=== PATIENT | female | born 1965 | race Caucasian/White ===

== ENCOUNTER 2019-04-03 19:37 | Emergency (ER) | payer OTHER, MEDICARE ==
[2019-04-03 19:45] VITALS: BP 133/81; PULSE 72; TEMP 97.8; BMI 34.9
[2019-04-03] MEDS ORDERED: ACETAMINOPHEN 325 MG TABLET (FP) PO ONE (19:47)
[2019-04-03] MEDS ORDERED: ACETAMINOPHEN 325 MG TABLET (FP) ONE (19:49)
--- NOTE | 2019-04-03 20:11 | PDOC ---
Documentation entered by Gideon Galvez SCRIBE, acting as scribe for Kinjal Kirkland MD. Kinjal Kirkland MD: This documentation has been prepared by the Leonor bautista Xhesika, SCRIBE, under my direction and personally reviewed by me in its entirety. I confirm that the documentation accurately reflects all work, treatment, procedures, and medical decision making performed by me. History of Present Illness - General Chief Complaint: Injury Stated Complaint: NOSE PAIN History Source: Patient Exam Limitations: No Limitations - History of Present Illness Initial Comments: 04/03/19 19:56 The patient is a 53 year old female with a significant PMH of HTN, fibromuscular dysplasia, CAD with stents, palpitations, and tucasaga who presents to the emergency department with nasal bridge pain and bruising 1hr prior to her arrival. The patient states she tripped and fell face forward in an elevator and sustained an abrasion to her forehead. patient notes she previously sustained a broken nose and had to get a rhinoplasty, which prompted her arrival to the ED. The patient denies LOC, nausea, vomiting. Patient denies epistaxis. The patient denies chest pain, shortness of breath, headache and dizziness. Denies fever, chills, cough, diarrhea and constipation. Denies dysuria, frequency, urgency and hematuria. Allergies: NKDA Past surgical history: lumbar fusion; hip osteotomy; bunion surgery; four left knee surgeries Social history: Glass of wine daily Past History - Past Medical History Allergies/Adverse Reactions: Allergies Allergy/AdvReac Type Severity Reaction Status Date / Time mold Allergy Mild Verified 11/04/17 12:04 shellfish derived Allergy Mild Verified 11/04/17 12:07 tree and shrub pollen Allergy Mild Verified 11/04/17 12:04 Home Medications: Ambulatory Orders Diclofenac Sodium [Voltaren] 2 gm TP TID PRN #3 tube 11/10/17 Aspirin [ASA -] 81 mg PO DAILY 12/22/17 Atorvastatin Ca [Lipitor] 40 mg PO HS 12/22/17 Clopidogrel Bisulfate [Plavix -] 75 mg PO DAILY 12/22/17 Escitalopram Oxalate [Lexapro -] 5 mg PO DAILY 12/22/17 Medical Marijuana [Medical Marijuana Oil] 1 drop PO DAILY 12/22/17 Metoprolol Tartrate 12.5 mg PO DAILY 12/22/17 Nitroglycerin 0.4 mg SL [id number] PRN 12/22/17 Anemia: No Asthma: No Cancer: No Cardiac Disorders: Yes (fibromuscular dysplasia, CAD with stents,palpitations) CVA: No COPD: No CHF: No Dementia: No Diabetes: No GI Disorders: Yes Disorders: No HTN: Yes Hypercholesterolemia: No Liver Disease: No Seizures: No Thyroid Disease: No Other medical history: FIBROMUSCLULAR DYSPLASIA, TUCASAGA - Surgical History Orthopedic Surgery: Yes (lumbar fusion; hip osteotomy; bunion surgery; four left knee surgeries) - Suicide/Smoking/Psychosocial Hx Smoking History: Never smoked Hx Alcohol Use: Yes (glass of wine daily) Drug/Substance Use Hx: No Substance Use Type: Alcohol Hx Substance Use Treatment: No Review of Systems - Review of Systems Able to Perform ROS?: Yes Comments:: 04/03/19 19:57 GENERAL/CONSTITUTIONAL: No fever or chills. No weakness. HEAD, EYES, EARS, NOSE AND THROAT: No change in vision. No ear pain or discharge. No sore throat. (+) nasal bridge pain and bruising. (+) forehead abrasion. CARDIOVASCULAR: No chest pain or shortness of breath. RESPIRATORY: No cough, wheezing, or hemoptysis. GASTROINTESTINAL: No nausea, vomiting, diarrhea or constipation. GENITOURINARY: No dysuria, frequency, or change in urination. MUSCULOSKELETAL: No joint or muscle swelling or pain. No neck or back pain. SKIN: No rash NEUROLOGIC: No headache, vertigo, loss of consciousness, or change in strength/ sensation. ENDOCRINE: No increased thirst. No abnormal weight change. HEMATOLOGIC/LYMPHATIC: No anemia, easy bleeding, or history of blood clots. ALLERGIC/IMMUNOLOGIC: No hives or skin allergy. Constitutional: No: Chills, Diaphoresis, Fever *Physical Exam - Vital Signs Last Vital Signs Temp Pulse Resp BP Pulse Ox 97.8 F 72 16 133/81 100 04/03/19 19:40 04/03/19 19:40 04/03/19 19:40 04/03/19 19:40 04/03/19 19:40 - Physical Exam Comments: 04/03/19 19:59 awake alert forehead superifical abrasion. hematoma central forehead. no crepitus no step off. no active bleeding. nasal bridge upper with mild eccymosis. no palp crepitus or laxity. no nasal septal hematoma. EOMI, PERRL. no mildilne cervical spine tenderness. nuero alert orientd x 3 5/5 all four ext. gait normal. lungs clear bilat. heart rrr no mrg. skin as described with forehead abrasion otherwise cdi. ED Treatment Course - RADIOLOGY Radiology Studies Ordered: Category Date Time Status NASAL BONES [RAD] Stat Radiology 04/03/19 19:47 Ordered - Medications Given in the ED: ED Medications Discontinued Medications Generic Name Dose Route Start Last Admin Trade Name Freq PRN Reason Stop Dose Admin Acetaminophen 650 mg 04/03/19 19:47 04/03/19 19:50 Tylenol - PO 04/03/19 19:48 650 mg ONCE ONE Administration Medical Decision Making - Medical Decision Making 04/03/19 20:00 pt with nasal bridge injury head injury. no loc on plavis. suggested to pt regarding need for nueroimaging due to concerns for intracranail bleed because on plavis. pt refusing imaging due to concerns for multiple radiation/ imaging in the past. requesting nasal bridge xray to r/o fx. only. offered pain medication declined. xray ordered. pt not wanting to wait for xray nose. will dc home. given referral for ENT 04/03/19 20:36 xray nasal bridge indeterminate fx vs. old injury pt h/o prior nasal fracture and surgery. dc home with fu dr marie. ent. *DC/Admit/Observation/Transfer Diagnosis at time of Disposition: Nasal contusion, Head trauma, Nasal bone fracture - Discharge Dispostion Disposition: HOME Condition at time of disposition: Improved - Referrals Referrals: Marito aMrie MD [Staff Physician] - - Patient Instructions Printed Discharge Instructions: DI for Nose Fracture, DI for Closed Head Injury Additional Instructions: no nose blowing for 3 days. you should ice to your nasal bridge and forehead. apply bacitracin to scrapes on forehead to avoid scarring. return for vomiting confusion worsening headache or any concerns for ct of your head. you should follow up with your primary doctor and ear nose and throat. you can see your own ,or follow up with dr marie see referral information and call to schedule. - Post Discharge Activity
== END 2019-04-03 20:37 | disposition home or self-care (01) ==
LOC: FER 19:37
DX: S00.33XA Contusion of nose, initial encounter (principal); W18.39XA Other fall on same level, initial encounter; Y93.89 Activity, other specified; Y92.89 Other specified places as the place of occurrence of the external cause
CPT/HCPCS: 70160-TC-FY; 99281-25

== ENCOUNTER 2019-04-07 16:11 | Emergency (ER) | payer OTHER, MEDICARE ==
--- NOTE | 2019-04-07 16:13 | PDOC ---
History of Present Illness <Jason Lea - Last Filed: 04/07/19 18:03> - General History Source: Patient Exam Limitations: No Limitations - History of Present Illness Initial Comments: Pt is a 53 yo F, with PMH of HTN, fibromuscular dysplasia, CAD (stents x6), carotid aneurysm, and chronic joint pain (knees, back), who is presenting via personal car from [facility] urgent care for concern of RLE swelling. Pt states 6 days ago 04/01/2019, pt received steroid shot to R anterior knee for chronic pain. Pt states after the shot, she felt a "pop" sensation to her posterior knee , with associated swelling to the R lower leg, which has worsened. Pt was seen at [facility] ER 4 days ago (04/03) after a mechanical trip and fell to her face. Pt consented to get only a nasal x-ray at that time, which showed acute vs chronic nasal bone fracture. Pt denies any recent surgeries or travel. Pt denies fevers/ chills, headache, vision changes, syncope, chest pain, palpitations, SOB, nausea /vomiting, abdominal pain, urinary symptoms, or diarrhea/constipation. Allergies: NKDA PCP: [facility]: Titus ([facility]) Social: Pt denies any cigarette, alcohol, or drug use. Pt denies any recent travel or sick contacts. Surgical: cardiac, as above. Lumbar fusion, hip osteotomy, bunions, L knee x4 Family: no relevant history. 04/07/19 16:48 <Jailene Casey - Last Filed: 04/07/19 18:16> - General Chief Complaint: Edema Stated Complaint: RIGHT LEG SWELLING/PAIN Time Seen by Provider: 04/07/19 16:13 Past History <Jason Lea - Last Filed: 04/07/19 18:03> - Travel Traveled outside of the country in the last 30 days: No Close contact w/someone who was outside of country & ill: No - Past Medical History Anemia: No Asthma: No Cancer: No Cardiac Disorders: Yes (fibromuscular dysplasia, CAD with stents,palpitations) CVA: No COPD: No CHF: No Dementia: No Diabetes: No GI Disorders: Yes Disorders: No HTN: Yes Hypercholesterolemia: No Liver Disease: No Seizures: No Thyroid Disease: No - Surgical History Orthopedic Surgery: Yes (lumbar fusion; hip osteotomy; bunion surgery; four left knee surgeries) - Suicide/Smoking/Psychosocial Hx Smoking History: Never smoked Hx Alcohol Use: Yes (glass of wine daily) Drug/Substance Use Hx: No Substance Use Type: Alcohol Hx Substance Use Treatment: No <Jailene Casey - Last Filed: 04/07/19 18:16> - Past Medical History Allergies/Adverse Reactions: Allergies Allergy/AdvReac Type Severity Reaction Status Date / Time mold Allergy Mild Verified 04/07/19 16:12 shellfish derived Allergy Mild Verified 04/07/19 16:12 tree and shrub pollen Allergy Mild Verified 04/07/19 16:12 Home Medications: Ambulatory Orders Diclofenac Sodium [Voltaren] 2 gm TP TID PRN #3 tube 11/10/17 Aspirin [ASA -] 81 mg PO DAILY 12/22/17 Atorvastatin Ca [Lipitor] 40 mg PO HS 12/22/17 Clopidogrel Bisulfate [Plavix -] 75 mg PO DAILY 12/22/17 Escitalopram Oxalate [Lexapro -] 5 mg PO DAILY 12/22/17 Medical Marijuana [Medical Marijuana Oil] 1 drop PO DAILY 12/22/17 Metoprolol Tartrate 12.5 mg PO DAILY 12/22/17 Nitroglycerin 0.4 mg SL [id number] PRN 12/22/17 Losartan Potassium 0 mg PO DAILY 04/07/19 Montelukast Sodium [Singulair] 10 mg PO DAILY 04/07/19 Review of Systems - Review of Systems Able to Perform ROS?: Yes Is the patient limited Swiss proficient: No Constitutional: Yes: Weight Stable. No: Chills, Diaphoresis, Fever, Loss of Appetite, Malaise, Weakness HEENTM: No: Blurred Vision, Double Vision, Nose Congestion, Throat Pain, Throat Swelling, Difficulty Swallowing Respiratory: No: Cough, Orthopnea, Shortness of Breath Cardiac (ROS): Yes: See HPI, Edema. No: Chest Pain, Irregular Heart Rate, Lightheadedness, Palpitations, Syncope, Chest Tightness ABD/GI: No: Constipated, Diarrhea, Nausea, Poor Appetite, Poor Fluid Intake, Vomiting : No: Burning, Dysuria, Pain, Urgency Musculoskeletal: Yes: See HPI. No: Back Pain, Joint Pain, Muscle Pain, Muscle Weakness Integumentary: No: Bruising, Rash Neurological: No: Headache, Numbness, Paresthesia, Tingling, Weakness, Unsteady Gait, Dizziness Psychiatric: No: Sleep Pattern Change, Change in Appetite Endocrine: No: Increased Urine, Change in Weight Hematologic/Lymphatic: Yes: See HPI, Blood Clots. No: Anemia, Easy Bleeding, Easy Bruising All Other Systems: Reviewed and Negative <Jailene Casey - Last Filed: 04/07/19 18:16> *Physical Exam - Vital Signs Last Vital Signs Temp Pulse Resp BP Pulse Ox 98.1 F 63 18 132/68 100 04/07/19 16:12 04/07/19 16:12 04/07/19 16:12 04/07/19 16:12 04/07/19 16:12 <Jason Lea - Last Filed: 04/07/19 18:03> - Physical Exam Comments: Vitals stable, pt afebrile. Pt in NAD, obese body habitus. Pt alert and oriented x3. chief information security officer generally intact, muscular strength and sensation intact. No midline spinal tenderness, step-offs, or crepitus. Ecchymosis and mild edema over nasal bridge from fall (see HPI). Mild ecchymosis under R eye. Eyes PERRLA, EOMI. Oropharynx without erythema or exudates, no LAD b/l. No nasal congestion, no septal deviation or hematoma. Hearing intact, no otorrhea. Clear heart sounds, S1/S2, no JVD, b/l pedal edema, or heart murmur. Clear lung sounds, no respiratory distress, wheezes, crackles, or accessory muscle use. No abdominal or CVA tenderness to palpation, no rebound, no guarding. Abdomen soft, non-distended, and with normoactive bowel sounds. Mild edema of R lower leg. Ecchymosis of R lateral midfoot with lateral malleolus edema. ROM of knee and ankle intact with no tenderness. No swelling or cyst present in popliteal region. Pulses intact popliteal and DP b/l LE. Skin without jaundice or rash. 04/07/19 17:18 <Jailene Casey - Last Filed: 04/07/19 18:16> Medical Decision Making - Medical Decision Making Pt was seen at bedside, also will be seen by attending Dr. Lea. Pt presenting with complaints of RLE edema after receiving steroid injection 6 days ago. DVT vs bakers cyst vs MSK strain/sprain. Will evaluate for DVT with b/ l LE doppler. Pt refuses R ankle and mid-foot x-ray to r/o avulsion fracture, despite ecchymosis to lateral midfoot. Risks explained and suggested f/u if edema or ecchymosis does not improve. Pt denies pain control measures at this time. Will continue to reassess pt and monitor for symptomatic improvement. 04/07/19 17:20 Pt was taken for Doppler. Pending US read. 04/07/19 17:23 Doppler negative for DVT Pt discharged to home with PCP and vascular f/u. Strict return precautions with pt understanding. 04/07/19 18:14 <Jailene Casey - Last Filed: 04/07/19 18:16> *DC/Admit/Observation/Transfer - Discharge Dispostion Decision to Admit order: No <Jason Lea - Last Filed: 04/07/19 18:03> - Discharge Dispostion Decision to Admit order: No <Jailene Casey - Last Filed: 04/07/19 18:16> Diagnosis at time of Disposition: Right calf pain Strain of calf muscle Qualifiers: Encounter type: initial encounter Laterality: right Qualified Code(s): S86.811A - Strain of other muscle(s) and tendon(s) at lower leg level, right leg , initial encounter - Discharge Dispostion Disposition: HOME Condition at time of disposition: Good - Patient Instructions Printed Discharge Instructions: DI for Calf Muscle Strain Additional Instructions: Rest, heat, recheck if symptoms become more severe or additional symptoms develop, especially increased swelling, redness, warmth, chest pain, or shortness of breath. Otherwise follow-up with primary physician
--- NOTE | 2019-04-07 16:21 | PDOC ---
Attending Attestation - Resident Resident Name: Jailene Casey - ED Attending Attestation I have performed the following: I have examined & evaluated the patient, The case was reviewed & discussed with the resident, I agree w/resident's findings & plan, Exceptions are as noted - HPI HPI: 04/07/19 17:08 Patient complains of right calf swelling and pain after receiving a steroid injection into her right knee. Afterwards, while she was walking, she heard a pop and experienced pain in the back of the calf. No chest pain or shortness of breath Extensive history of vascular disease, primarily arterial, and involving fibrous tissue of the arterial seymour, numerous stents in the heart and carotids. Maintained on Plavix and aspirin. No recent exacerbations - Physicial Exam PE: 04/07/19 17:09 Vital signs normal Right calf is soft, nonedematous, without mass or cords. There is no warmth or erythema. There is mild tenderness to deep palpation in the mid calf posteriorly. Examination of the knee is normal. No effusion, deformity, patellar tenderness, ligament stress tenderness or laxity. Dawson is negative - Medical Decision Making Assessment: Muscle strain, ruptured Bernabe's cyst, highly unlikely with the physical findings and current therapy of Plavix and aspirin at this is a DVT. In addition, there is no reason to think the veins would be involved in her underlying disease. Plan: Venous Doppler, further evaluation and treatment depending on results. 04/07/19 18:05 No DVT on Doppler. This is consistent with clinical findings and current pharmacological therapy. Fully ambulatory and in no significant pain at discharge to follow up if condition changes.
[2019-04-07 16:28] VITALS: BP 132/68; PULSE 63; TEMP 98.1; BMI 34.9
== END 2019-04-07 18:09 | disposition home or self-care (01) ==
LOC: FER 16:11
DX: M79.661 Pain in right lower leg (principal); S86.811A Strain of other muscle(s) and tendon(s) at lower leg level, right leg, initial encounter; I10 Essential (primary) hypertension
CPT/HCPCS: 93970-TC; 99281-25

== ENCOUNTER 2021-01-30 19:11 | Emergency (ER) | payer OTHER, MEDICARE ==
[2021-01-30 19:26] VITALS: BP 84/37; PULSE 56; TEMP 97.8; BMI 32.3
[2021-01-30] MEDS ORDERED: ASPIRIN 81 MG CHEWABLE TABLETS PO ONE (19:45)
[2021-01-30] MEDS ORDERED: ASPIRIN 81 MG CHEWABLE TABLETS ONE (19:46)
[2021-01-30 20:01] LABS: BASO % 0.4 % (0-2.0); EOS % 1.1 % (0-4.5); HEMOGLOBIN 13.4 GM/dL (10.7-15.3); LYMPH % 35.3 % (8-40); MCHC 34.5 g/dl (32.0-36.0); MEAN CELL VOLUME 95.8 fl (80-96); MEAN PLT VOLUME 7.5 fl (7.5-11.1); NEUT % 54.2 % (42.8-82.8); PLATELET COUNT 337 K/MM3 (134-434); RBC 4.07 M/mm3 (3.60-5.2); RDW 12.9 % (11.6-15.6); WHITE BLOOD COUNT 10.3 K/mm3 (4.0-10.0)
[2021-01-30] MEDS ORDERED: ONDANSETRON *ODT* 4 MG TABLET ONE (20:01)
[2021-01-30] MEDS ORDERED: ONDANSETRON *ODT* 4 MG TABLET SL ONE (20:01)
[2021-01-30 20:11] LABS: INR 1.01 (0.83-1.09); PROTHROMBIN TIME (PATIENT) 12.2 SEC (9.7-13.0)
[2021-01-30 20:13] LABS: ACTIVATED PTT 26.7 SECONDS (25.2-36.5)
[2021-01-30 21:03] LABS: CHLORIDE 106 mmol/L (98-107); SODIUM 140 mmol/L (136-145)
[2021-01-30 21:06] LABS: ALBUMIN 3.7 g/dl (3.4-5.0); CALCIUM 9.2 mg/dL (8.5-10.1)
[2021-01-30 21:07] LABS: ANION GAP 10 MMOL/L (8-16); BLOOD UREA NITROGEN 19.8 mg/dL (7-18); CO2 24 mmol/L (21-32); GLUCOSE,RANDOM 84 mg/dL (74-106)
[2021-01-30 21:09] LABS: SGOT/AST 31 U/L (15-37); SGPT/ALT 28 U/L (13-61)
[2021-01-30 21:10] LABS: BILIRUBIN,TOTAL 0.4 mg/dL (0.2-1); CREATININE 0.8 mg/dL (0.55-1.3)
[2021-01-30 21:11] LABS: TOT PROT 6.7 g/dl (6.4-8.2)
[2021-01-30 21:12] LABS: ALK PHOS 66 U/L (45-117); N-TERMINAL BNP 142.1 pg/ml (5-125)
== END 2021-01-30 20:12 | disposition short-term general hospital (02) ==
LOC: JER 19:11
DX: I21.9 Acute myocardial infarction, unspecified (principal); I77.3 Arterial fibromuscular dysplasia; Z95.5 Presence of coronary angioplasty implant and graft
CPT/HCPCS: 36415; 71045-TC-FY; 80053; 83880; 84484; 85025; 85610; 85730; 93005; 93010; 99291; C9803; Q0162; U0003; U0005